=== PATIENT | female | born 1995 | race Caucasian/White ===

== ENCOUNTER 2016-07-04 11:46 | Emergency (ER) | payer MEDICAID, OTHER ==
[2016-07-04 13:42] VITALS: BP 138/61
--- NOTE | 2016-07-04 14:05 | UC ---
Throat Pain/Nasal Kevin HPI - HPI Summary HPI Summary: 20 female presents with complaints of fever, sore throat and swollen glands that began around Monday07/02/16. Swallowing aggravates it. Patient states she tried drinking water, sleeping and taking acetaminophen without any relief. She states it has not improved but has not gotten worse. Last dose of acetaminophen around 8am this morning. Admits to fever/chills. Denies vomiting, cough and difficulty breathing. Denies PMHx. - History of Current Complaint Chief Complaint: UCRespiratory Stated Complaint: FEVER/SWOLLEN THROAT GLANDS Hx Obtained From: Patient Hx Last Menstrual Period: 07/03/16 ?: No Onset/Duration: Sudden Onset Severity: Mild Pain Intensity: 3 Pain Scale Used: 0-10 Numeric Cough: None Associated Signs & Symptoms: Positive: Dysphagia, Nasal Discharge - Epiglottits Risk Factors Epiglottis Risk Factors: Negative - Allergies/Home Medications Allergies/Adverse Reactions: Allergies Allergy/AdvReac Type Severity Reaction Status Date / Time No Known Allergies Allergy Verified 07/04/16 13:42 Home Medications: Home Medications Acetaminophen [Tylenol] 650 mg PO PRN 07/04/16 [History] PMH/Surg Hx/FS Hx/Imm Hx Cardiovascular History Of: Denies: Hypertension Respiratory History Of: Denies: Asthma GI/ History Of: Denies: Gastroesophageal Reflux - Surgical History Surgical History: None - Family History Known Family History: Positive: None - Social History Alcohol Use: Occasionally Substance Use Type: None Smoking Status (MU): Never Smoked Tobacco Have You Smoked in the Last Year: No - Immunization History Most Recent Influenza Vaccination: not this season Vaccination Up to Date: Yes Review of Systems Constitutional: Negative Skin: Negative Eyes: Negative ENT: Sore Throat, Nasal Discharge Respiratory: Negative Cardiovascular: Negative Gastrointestinal: Negative Neurovascular: Negative Musculoskeletal: Negative Neurological: Negative Psychological: Negative All Other Systems Reviewed And Are Negative: Yes Physical Exam Triage Information Reviewed: Yes Appearance: Well-Appearing, No Pain Distress, Well-Nourished Vital Signs: Initial Vital Signs Temp 99.1 F 07/04/16 13:35 Pulse 85 07/04/16 13:35 Resp 14 07/04/16 13:35 BP 138/61 07/04/16 13:35 Pulse Ox 100 07/04/16 13:35 Vital Signs Reviewed: Yes Eyes: Positive: Conjunctiva Clear ENT: Positive: Normal ENT inspection, Hearing grossly normal, Pharyngeal erythema, TMs normal, Tonsillar swelling, Other: - uvula midline and airway patent. no sign of peritonsillar abscess or epiglotitis noted. Negative: Nasal congestion, Nasal drainage, Tonsillar exudate, Trismus, Muffled/hoarse voice Dental: Positive: Cervical Lymphadenopathy - bilateral. Negative: Percussion Tenderness @ Neck exam: Normal Neck: Positive: Nontender, Enlarged Nodes @ Respiratory: Positive: Chest non-tender, Lungs clear, Normal breath sounds, No respiratory distress, No accessory muscle use Cardiovascular: Positive: RRR, No Murmur, Pulses Normal, Brisk Capillary Refill Abdomen Description: Positive: Nontender, No Organomegaly, Soft Bowel Sounds: Positive: Present Musculoskeletal Exam: Normal Musculoskeletal: Positive: Strength Intact, ROM Intact, No Edema Neurological Exam: Normal Neurological: Positive: Alert Psychological Exam: Normal Psychological: Positive: Normal Response To Family Skin Exam: Normal Throat Pain/Nasal Course/Dx - Course Course Of Treatment: strep culture obtained and positive for strep. will be treated with antibiotics. fluids and rest. tylenol/ibuprofen for pain and inflammation. - Differential Dx/Diagnosis Differential Diagnosis/HQI/PQRI: Influenza, Mononucleosis, Otitis Media, Pharyngitis, Sinusitis, Tonsillitis, URI Provider Diagnoses: Streptococcal pharyngitis Discharge - Discharge Plan Condition: Stable Disposition: HOME Prescriptions: Amoxicillin CAP* [Amoxicillin 500 MG CAP*] 500 mg PO Q12H #20 cap Patient Education Materials: Strep Throat (ED) Forms: *School Release Referrals: Non Staff,Doctor [Primary Care Provider] - Additional Instructions: Take prescribed antibiotics until entire dose is finished, even if symptoms improve. Antibiotics lessen the effect of control, please take into consideration. Recommend taking probiotics or eating israeli yogurt in between doses to replenish normal maxime and prevent yeast infections. Take ibuprofen for pain and inflammation. Strep is very contagious, wash hands frequently, cover mouth when sneezing and coughing, do not share drinks. Rest and drink plenty of fluids. Recommend swishing with salt water multiple times daily If symptoms worsen, do not improve or new symptoms develop such as difficulty breathing, unable to swallow and high fevers over 105F please seek medical attention immediately.
== END 2016-07-04 14:31 | disposition home or self-care (01) ==
LOC: UCCORT 11:46
DX: J02.0 Streptococcal pharyngitis (principal)
CPT/HCPCS: 87651; 99212; G0463

== ENCOUNTER 2016-08-05 15:19 | Emergency (ER) | payer MEDICAID, OTHER ==
[2016-08-05 16:44] VITALS: BP 124/71
--- NOTE | 2016-08-05 17:38 | UC ---
Eye Complaint HPI - HPI Summary HPI Summary: complaint of waking up 2 nights ago with right eye redness and itching the next day it spread to the left eye lots of purulent drainage denies any eye pain denies any vision changes but can see drainaige in the morning tried OTC eye drops without relief several friends with conjunctivitis - History of Current Complaint Chief Complaint: UCEye Stated Complaint: EYE COMPLAINT Time Seen by Provider: 08/05/16 17:31 Hx Obtained From: Patient Hx Last Menstrual Period: 08/05/16 - Allergies/Home Medications Allergies/Adverse Reactions: Allergies Allergy/AdvReac Type Severity Reaction Status Date / Time No Known Allergies Allergy Verified 08/05/16 16:37 PMH/Surg Hx/FS Hx/Imm Hx Previously Healthy: Yes Cardiovascular History Of: Denies: Hypertension Respiratory History Of: Reports: Asthma - Excerise-induced GI/ History Of: Denies: Gastroesophageal Reflux - Surgical History Surgical History: None - Family History Known Family History: Positive: None Negative: Cardiac Disease, Hypertension, Diabetes - Social History Occupation: Student Alcohol Use: Occasionally Substance Use Type: None Smoking Status (MU): Never Smoked Tobacco Have You Smoked in the Last Year: No - Immunization History Most Recent Influenza Vaccination: NONE Most Recent Tetanus Shot: UTD Most Recent Pneumonia Vaccination: N/A Vaccination Up to Date: Yes Review of Systems Constitutional: Negative Skin: Negative Eyes: Drainage, Eye Redness ENT: Negative Respiratory: Negative Cardiovascular: Negative Gastrointestinal: Negative Genitourinary: Negative Motor: Negative Neurovascular: Negative Musculoskeletal: Negative Neurological: Negative Psychological: Negative All Other Systems Reviewed And Are Negative: Yes Physical Exam Triage Information Reviewed: Yes Appearance: No Pain Distress, Well-Nourished Vital Signs: Initial Vital Signs Temp 98.4 F 08/05/16 16:39 Pulse 81 08/05/16 16:39 Resp 16 08/05/16 16:39 BP 124/71 08/05/16 16:39 Pulse Ox 98 08/05/16 16:39 Vital Signs Reviewed: Yes Eyes: Positive: Conjunctiva Inflamed, Discharge ENT: Positive: Pharynx normal, TMs normal Neck: Positive: No Lymphadenopathy Respiratory: Positive: Lungs clear, Normal breath sounds, No respiratory distress Cardiovascular: Positive: RRR, No Murmur, Pulses Normal Abdomen Description: Positive: Nontender, Soft Bowel Sounds: Positive: Present Musculoskeletal Exam: Normal Neurological Exam: Normal Psychological Exam: Normal Skin Exam: Normal Eye Complaint Course/Dx - Differential Dx/Diagnosis Differential Diagnosis/HQI/PQRI: Conjunctivitis, Corneal Abrasion Provider Diagnoses: bilateral conjuncitivitis Discharge - Discharge Plan Condition: Stable Disposition: HOME Prescriptions: Tobramycin 0.3% [email or web address]* 1 drop BOTH EYES Q4H #1 btl Patient Education Materials: Conjunctivitis (ED) Referrals: Non Staff,Doctor [Primary Care Provider] - [facility] [place] [facility] [Outside] Additional Instructions: CONJUNCTIVITIS What is Conjunctivitis? Conjunctivitis is redness and swelling of the conjunctiva, the thin transparent layer that lines the inner eyelid and covers the white part of the eye. The three main types of conjunctivitis are infectious, allergic, and chemical. The infectious type, commonly called "pink eye," is caused by a contagious virus or by bacteria. Your body's allergies to pollen, cosmetics, animals or fabrics often bring on allergic conjunctivitis. Irritants like air pollution, noxious fumes and chlorine in swimming pools may produce the chemical form. Symptoms Might Include: More tearing Eye pain Redness in the eyes Gritty feeling in the eyes Itching of the eye Blurred vision Sensitivity to light Crusts that form on the eyelid overnight Treatment Recommendations: Use eye drops or ointment as directed. Do not rub or touch your eyes. Wash your hands frequently. Use cool compresses to relieve pain and itching. Prevention: Do not share eye make-up. Replace eye make-up frequently. Do not share towels, washcloths, etc. Do not share eye drops. . Call Your Doctor or Return Here IF: Your symptoms worsen or do not improve in 3 to 4 days. You have problems with, or loss of, your vision. You have a significant increase in pain. You have any new symptoms that worry you. Your blood pressure is pre-hypertensive reading. Please contact your primary care provider within 1 day -4 weeks for further evaluation
== END 2016-08-05 17:48 | disposition home or self-care (01) ==
LOC: UCCORT 15:19
DX: H10.33 Unspecified acute conjunctivitis, bilateral (principal); J45.990 Exercise induced bronchospasm
CPT/HCPCS: 99212; G0463